=== PATIENT | female | born 1940 | race Caucasian/White ===

== ENCOUNTER → 2018-02-01 16:10 | Outpatient (CLI) | payer MEDICARE, SELFPAY ==
[2018-02-01 16:13] LABS: Pathologist Comment May follow
[2018-02-01 18:07] LABS: Source / Synovial Fluid LT SHOULDER; Source- Body Fluid SYNOVIAL
[2018-02-01 18:08] LABS: Appearance /Synovial Fluid Hazy (CLEAR); Color / Synovial Fluid Yellow (Pale Yellow); Viscosity / Synovial Fluid Viscous (HIGH)
[2018-02-01 18:21] LABS: RBC /Synovial Fluid 0.003 10^6/uL (0); Synovial Fld Mononuclear WBC % 39.2 %; Synovial Fld Polynuclear WBC # 0.302 10^3/ul; Synovial Fld Polynuclear WBC % 60.8 %
[2018-02-01 18:38] LABS: AUTO B FLUID DILUENT BKGD CT WBC <0.1 RBC <0.01 (W<.1,R<.01)
[2018-02-01 18:52] LABS: Lymph 5 %; Monocyte /Synovial Fluid 3 %
[2018-02-01 18:53] LABS: Other Cell /Synovial Fluid 92 %
[2018-02-01 18:54] LABS: Body Fluid QC Type(s) BF3Q,BF4Q; CRYSTALS, BODY FLUID Other, see comment
[2018-02-02 12:07] LABS: Pathologist Review Reviewed
== END ==
PROVIDERS: Family Provider Internal Medicine; Visit Provider Internal Medicine Rheumatology
DX: M06.4 Inflammatory polyarthropathy (principal); M79.7 Fibromyalgia; M17.0 Bilateral primary osteoarthritis of knee; M81.0 Age-related osteoporosis without current pathological fracture; M48.061 Spinal stenosis, lumbar region without neurogenic claudication; I50.9 Heart failure, unspecified; I44.7 Left bundle-branch block, unspecified; I10 Essential (primary) hypertension; G45.9 Transient cerebral ischemic attack, unspecified; Z79.899 Other long term (current) drug therapy
CPT/HCPCS: 87070; 87075; 87205; 89050; 89051; 89060